=== PATIENT | female | born 1990 | race Caucasian/White ===

== ENCOUNTER 2018-10-19 12:46 | Emergency (ER) | payer BC, OTHER ==
[~2018-10-19] VITALS: Ht 165.1 cm; Wt 84.1 kg
[2018-10-19] MEDS ORDERED: SUMA100T2 PO (12:53)
[2018-10-19] MEDS ORDERED: PROP10TA56 (12:53)
[2018-10-19] MEDS ORDERED: TRI-TAB16 (12:53)
[2018-10-19] MEDS ORDERED: SPIR50TA4 (12:53)
[2018-10-19] MEDS ORDERED: GI COCKTAIL 50ML BTL(HYOSCYAMINE/MAALOX/LIDOCAINE VISCOUS)(1:3:1) PO ONE (15:30)
[2018-10-19 15:51] LABS: BASO # 0.1 10^3/uL (0.0-0.2); BASO % 0.4 % (0.0-1.0); EOS % 0.4 % (0.0-3.0); HEMATOCRIT 39.7 % (36.0-47.0); HEMOGLOBIN 14.4 g/dl (12.0-15.5); LYMPH # 3.1 10^3/uL (1.5-5.0); LYMPH % 27.8 % (24.0-44.0); MEAN CORPUSCULAR HEMOGLOBIN 31.2 pg (27.0-33.0); MEAN CORPUSCULAR HGB CONC 36.3 g/dl (32.0-36.5); MEAN CORPUSCULAR VOLUME 85.9 fl (80.0-96.0); MONO # 0.6 10^3/uL (0.0-0.8); MONO % 5.8 % (0.0-5.0); NEUTROPHILS # 7.3 10^3/uL (1.5-8.5); NEUTROPHILS % 65.3 % (36.0-66.0); PLATELET COUNT, AUTOMATED 477 10^3/uL (150-450); RED BLOOD COUNT 4.62 10^6/uL (4.00-5.40); WHITE BLOOD COUNT 11.1 10^3/uL (4.0-10.0)
[2018-10-19 16:01] LABS: INR 1.03; PROTHROMBIN TIME 13.2 SECONDS (11.8-14.0)
[2018-10-19 16:04] LABS: D-DIMER QUANT 292.77 ng/ml (<500)
[2018-10-19 16:21] LABS: ALBUMIN 4.2 GM/DL (3.2-5.2); ALT/SGPT 36 U/L (12-78); BILIRUBIN,DIRECT 0.2 MG/DL (0.0-0.2); BILIRUBIN,TOTAL 0.5 MG/DL (0.2-1.0); BLOOD UREA NITROGEN 9 MG/DL (7-18); CALCIUM LEVEL 9.6 MG/DL (8.5-10.1); CARBON DIOXIDE LEVEL 23 MEQ/L (21-32); CHLORIDE LEVEL 106 MEQ/L (98-107); CK-MB VALUE MASS < 1.0 NG/ML (<3.6); CPK CREATINE PHOSPHOKINASE 69 U/L (26-192); CREATININE FOR GFR 0.78 MG/DL (0.55-1.30); GLOMERULAR FILTRATION RATE > 60.0 (>60); GLUCOSE, FASTING 82 MG/DL (70-100); MB/CK RELATIVE INDEX 1.45 (< OR =4); SODIUM LEVEL 138 MEQ/L (136-145); TOTAL PROTEIN 7.8 GM/DL (6.4-8.2); TROPONIN I < 0.02 NG/ML (< 0.10)
[2018-10-19 16:44] VITALS: BP 123/75
[2018-10-19] MEDS ORDERED: PRIL20TA2 PO (16:52)
--- NOTE | 2018-10-19 17:19 | REP ---
CHEST: Two views. There is no evidence of acute infiltrate. No pleural effusion is seen. The heart is normal in size. The mediastinal silhouette is unremarkable. The visualized osseous structures are intact. IMPRESSION: No acute pulmonary disease. Electronically Signed by Diony Flores MD 10/21/2018 09:54 A
--- NOTE | 2018-10-20 07:11 | ECGEPIP ---
[facility] - ED Test Date: 2018-10-19 Pat Name: HUMBERTO CASTRO Department: Room: - Gender: Female [employer] Coordinator: STACI : 1990 Requested By: Naveen Junior Order Number: [id number] Reading MD: Naveen Kinney Measurements Intervals [place] Rate: 77 P: 47 AK: 160 QRS: 41 QRSD: 84 T: 10 QT: 356 QTc: 405 Interpretive Statements SINUS RHYTHM WITH SINUS ARRHYTHMIA NONSPECIFIC T-WAVE ABNORMALITY NO PRIORS FOR COMPARISON Electronically Signed on 10-20-2018 7:11:02 EDT by Naveen Kinney
== END 2018-10-19 17:00 | disposition home or self-care (01) ==
LOC: M ED 12:46
DX: K21.9 Gastro-esophageal reflux disease without esophagitis (principal); R07.89 Other chest pain; R06.02 Shortness of breath; Z79.899 Other long term (current) drug therapy